=== PATIENT | female | born 1975 | race Caucasian/White ===

== ENCOUNTER 2017-11-17 05:20 | Day surgery (SDC) | payer OTHER ==
[2017-11-16 10:50] VITALS: BMI 32.8
[2017-11-17] MEDS ORDERED: ONDANSETRON 4 MG/2 ML VIAL IVPUSH PRN (08:16)
[2017-11-17] MEDS ORDERED: PROMETHAZINE HCL 25 MG/1 ML VIAL IVPUSH PRN (08:16)
[2017-11-17] MEDS ORDERED: LACTATED RINGERS SOLUTION 1,000 ML IV SCH (08:30)
[2017-11-17] MEDS ORDERED: PROPOFOL 20 ML ONE (08:35)
[2017-11-17] MEDS ORDERED: MIDAZOLAM HCL 2 MG/2 ML SINGLE DOSE VIAL ONE (08:35)
[2017-11-17] MEDS ORDERED: LIDOCAINE HCL/PF 2% SDV 5ML VIAL ONE (08:35)
[2017-11-17] MEDS ORDERED: ACETAMINOPHEN 1000 MG/100 ML VIAL (NON FORMULARY) IVPB ONE (08:55)
[2017-11-17] MEDS ORDERED: ceFAZolin SODIUM 1 GM VIAL IVPB ONE (09:17)
[2017-11-17] MEDS ORDERED: DEXAMETHASONE SOD PHOSPHATE 4 MG/1 ML VIAL ONE (09:23)
[2017-11-17] MEDS ORDERED: ceFAZolin SODIUM 1 GM VIAL ONE (09:23)
[2017-11-17] MEDS ORDERED: KETOROLAC TROMETHAMINE 30 MG/1 ML VIAL ONE (09:31)
[2017-11-17] MEDS ORDERED: RHO(D) IMMUNE GLOBULIN 1,500 UNIT DISP.SYRIN IM ONE (09:34)
[2017-11-17 10:24] VITALS: TEMP 98
--- NOTE | 2017-11-17 10:24 | OP ---
DATE OF OPERATION: 11/17/2017 PREOPERATIVE DIAGNOSIS: Missed . POSTOPERATIVE DIAGNOSIS: Missed . OPERATIVE PROCEDURE: Suction dilatation and curettage. SURGEON: Yulisa Richardson MD ANESTHESIA: Fractional. ESTIMATED BLOOD LOSS: 2 mL. DESCRIPTION OF PROCEDURE: The patient was brought to the operating room, placed in the supine position, given anesthesia by the museum security chief, placed in the lithotomy position, prepped and draped in the usual manner. The patient was examined. The uterus was noted to be anteverted. Adnexa negative. The anterior lip of the cervix was grasped with a tenaculum after the vagina was prepped and draped in the usual manner. Betadine was used. The cervix was dilated with Garcia dilators. A No. 7 suction curette was inserted and suction curettage was applied. Tissue was obtained and sent to Pathology for analysis. The patient tolerated the procedure well. Her estimated blood loss was approximately 2 mL. Hemostasis was good. Vital signs were good. The patient was then transferred to the recovery room after the tenaculum was released from the cervix, and the speculum was removed from the vagina. YULISA RICHARDSON M.D. BANDAR/[id number]
[2017-11-17 11:37] VITALS: BP 102/61; PULSE 76
--- NOTE | 2017-11-20 16:15 | PATH ---
Surgical Pathology Report Patient Name: JORDNA HEMPHILL Med. Rec. #: [id number] /Age/Gender: 1975 (Age: 42) / F Account: [id number] Location: [facility] Taken: 11/17/2017 Received: 11/17/2017 Reported: 11/20/2017 Physicians: Shay Richardson M.D. Specimen(s) Received PRODUCTS OF CONCEPTION Clinical History Missed Final Diagnosis PRODUCTS OF CONCEPTION, DILATATION AND CURETTAGE: GESTATIONAL ENDOMETRIUM AND DECIDUA CONSISTENT WITH PRODUCTS OF CONCEPTION. NO CHORIONIC VILLI IDENTIFIED. Electronically Signed Alaina Suárez M.D. Gross Description Received in formalin labeled "products of conception," is a 3.8 x 3.4 x 0.4 cm aggregate of barros pink soft tissue fragments. No definite villous tissue or somatic tissue is identified. The formalin is filtered and the specimen is entirely submitted in 3 cassettes. 11/17/2017 saudi11/17/2017
== END 2017-11-17 11:50 | disposition home or self-care (01) ==
LOC: JASU-SURG 05:20
PROVIDERS: ATTEND Obstetrics & Gynecology
PROC: 10D17ZZ Extraction of Products of Conception, Retained, Via Natural or Artificial Opening (ICD-10-PCS; principal; 2017-11-17 08:30)
DX: O02.1 Missed abortion (principal)
CPT/HCPCS: 86850; 86900; 86901; 86999; 88305-TC; 94760; J1561